=== PATIENT | male | born 1945 | race Caucasian/White ===

== ENCOUNTER 2016-08-13 14:42 | Emergency (ER) | payer MEDICARE, OTHER ==
--- NOTE | 2016-08-13 16:30 | ERRECORD ---
[facility] EMERGENCY RECORD KNOWN ALLERGIES No Known Drug Allergies (Unconfirmed) wasp (Unconfirmed) CURRENT MEDICATIONS No recorded medications PROBLEM LIST No recorded problems DIAGNOSIS (15:14 JPAR) FINAL: PRIMARY: Entered in error. PRESCRIPTION No recorded prescriptions DISPOSITION (15:14 JPAR) PATIENT: Disposition Type: Entered in Error, Disposition: zEntered in Error, Patient left the department. Lou: JPAR=Paramabrahan, RN, Freddy &a-1R&a+25V*p+0X*b1563T*c202B*c15G*c2P*p-0X&a-25V&a+1R Name: Ranjan Gardiner : 1945 M70 MedRec: [id number] AcctNum: [id number] Prepared: Julia Aug 13, 2016 15:21 by Interface Page 1 of 1 pMD MTDD
--- NOTE | 2016-08-13 16:34 | PICIS ---
[facility] EMERGENCY RECORD TRIAGE (15:12 JPAR) PATIENT: NAME: Ranjan Gardiner, AGE: 70, GENDER: male, : Wed1945, TIME OF GREET: WedAug 13, 2016 14:43, PREFERRED LANGUAGE: Burmese, RACE: WHITE, ETHNICITY: Not or , ECODE BILLING MAP: [facility], SSN: [id number], Zip Code: [address], KG WEIGHT: 81.65, PHONE: , , , PERSON ID: [id number]. COMPLAINT: TRACH OUT. ADMISSION: URGENCY: Left Before Triage, ADMISSION SOURCE: Home, TRANSPORT: CAR, BED: TRIAGE. PROVIDERS: TRIAGE NURSE: Freddy Xiong RN. PREVIOUS VISIT ALLERGIES: No Known Drug Allergies, wasp. KNOWN ALLERGIES No Known Drug Allergies (Unconfirmed) wasp (Unconfirmed) CURRENT MEDICATIONS No recorded medications EVENTS TRANSFER: Triage to Emergency Triage. (WedAug 13, 2016 15:12 JPAR) Removed from Emergency Triage. (15:14 JPAR) PROBLEM LIST No recorded problems DIAGNOSIS (15:14 JPAR) FINAL: PRIMARY: Entered in error. DISPOSITION (15:14 JPAR) PATIENT: Disposition Type: Entered in Error, Disposition: zEntered in Error, Patient left the department. PRESCRIPTION No recorded prescriptions Lou: JPAR=SAMANTHA Xiong, Freddy &a-1R&a+25V*p+0X*[id number]*c202B*c15G*c2P*p-0X&a-25V&a+1R Name: Ranjan Gardiner : 1945 M70 MedRec: [id number] AcctNum: [id number] Prepared: WedAug 13, 2016 15:21 by Interface Page 1 of 1 pMD MTDD
== END 2016-08-13 15:15 | disposition home or self-care (01) ==
LOC: NAV ERS 14:42
DX: Z53.21 Procedure and treatment not carried out due to patient leaving prior to being seen by health care provider (principal)

== ENCOUNTER 2017-06-21 10:00 | Emergency (ER) | payer MEDICARE, OTHER | END 2017-06-21 10:35 | disposition home or self-care (01) | LOC: NAV ERS 10:00 | DX: Z43.0 Encounter for attention to tracheostomy (principal); I10 Essential (primary) hypertension; Z87.891 Personal history of nicotine dependence | CPT/HCPCS: 99283 ==